=== PATIENT | male | born 1975 | race Caucasian/White ===

== ENCOUNTER → 2025-04-01 | Outpatient (CLI) | payer OTHER, SELFPAY ==
--- NOTE | 2025-04-01 16:36 | RAD_ITS ---
PROCEDURE: L/S SPINE MIN 4 VIEWS 04/01/2025 REASON FOR EXAM: CHRONIC LOW BACK PAIN TECHNIQUE: L/S SPINE MIN 4 VIEWS COMPARISON: None. FINDINGS: Mild degenerative dextroscoliosis apex at L3. Mildly exaggerated lumbar lordosis. There are diffuse spondylotic changes. Findings are demonstrated to by diffuse disc space narrowing, osteophyte formation and degenerative endplate sclerosis. There is diffuse facet joint arthropathy with secondary bilateral neural foramina narrowing. No fracture or dislocation is seen. No aggressive lytic or blastic bony lesion is noted. RAD/L/S Spine Min 4 Views IMPRESSION: Diffuse spondylosis. Findings are more prominent at L4-L5 and L5-S1 levels. Reading Location: [facility]
--- NOTE | 2025-04-01 16:36 | RAD_ITS ---
PROCEDURE: KNEE 4 OR MORE VIEWS 04/01/2025 REASON FOR EXAM: PAIN TECHNIQUE: KNEE 4 OR MORE VIEWS COMPARISON: No FINDINGS: Mild medial femorotibial joint space narrowing. Tiny osteophyte. No acute bone or soft tissue pathology. RAD/Knee 4 or More Views IMPRESSION: Mild right knee osteoarthritis Reading Location: [place] [id number]
--- NOTE | 2025-04-01 16:36 | RAD_ITS ---
PROCEDURE: KNEE 4 OR MORE VIEWS 04/01/2025 REASON FOR EXAM: PAIN TECHNIQUE: KNEE 4 OR MORE VIEWS COMPARISON: No FINDINGS: Mild medial femorotibial joint space narrowing. Tiny osteophytes. No acute bone or soft tissue pathology. RAD/Knee 4 or More Views IMPRESSION: Mild left knee osteoarthritis. Reading Location: [place] [id number]
[2025-04-01 17:40] LABS: Hematocrit 43.0 % (40-54); Hemoglobin 15.0 g/dL (13.0-16.5); Immature Granulocytes Count 0.020 X10^3/uL (0.0-0.0); Mean Corp Hgb Conc 34.9 g/dL (32-36); Mean Corpuscular Volume 92.7 fL (80-94); Mean Platelet Vol. 9.8 fl (6.2-12.0); NRBC Flagged by Analyzer 0 % (0-5); Platelet Count 211 K/mm3 (150-450); RBC Distribution Width CV 12.4 % (11.6-14.6); RBC Distribution Width SD 42.4 fl (35.1-43.9); Red Blood Count 4.64 M/mm3 (4.6-6.2); White Blood Count 7.3 K/mm3 (4.4-11.0)
[2025-04-01 18:15] LABS: AST(SGOT) 26 U/L (<=37); Alanine Aminotransfer ALT/SGPT 27 U/L (<=46); Albumin, Serum 4.3 g/dL (3.5-5.0); Alkaline Phosphatase 78 U/L (40-129); Anion Gap 12 (5-15); BUN 16 mg/dL (4-19); BUN/Creat Ratio 15.3 RATIO (10-20); Calcium,Total 9.4 mg/dL (7.6-11.0); Carbon Dioxide 25.2 mmol/L (21.0-32.0); Chloride 104 mmol/L (98-108); Cholesterol 157 mg/dL (<=200); Globulin 3.2 g/dL (2.2-4.2); Glucose 90 mg/dL (70-99); Low Density Lipoprotein Calc. 86 mg/dL; PSA,Total - Annual Screen 0.84 ng/mL (0.02-4.00); Potassium 3.8 mmol/L (3.3-5.1); Triglycerides 149 mg/dL; Very Low Density Lipoprotein 30 mg/dL (5-40); cholesterol:hdl ratio screen 3.79
== END | disposition home or self-care (01) ==
PROVIDERS: PCP Family Medicine; Referring Provider Family Medicine; Visit Provider Family Medicine
DX: Z00.00 Encounter for general adult medical examination without abnormal findings (principal); Z12.5 Encounter for screening for malignant neoplasm of prostate; M25.561 Pain in right knee; M25.562 Pain in left knee
CPT/HCPCS: 36415; 72110; 73564; 80053; 80061; 84153; 85025; G0103